=== PATIENT | male | born 1955 | race Caucasian/White ===

== ENCOUNTER 2018-12-02 07:55 | Day surgery (SDC) | payer OTHER, BC ==
[2018-11-27 15:04] VITALS: BMI 25.3
[2018-12-02 08:40] VITALS: TEMP 98.2
[2018-12-02] MEDS ORDERED: PROPOFOL 20 ML ONE ×2 (08:47)
[2018-12-02 11:47] VITALS: BP 116/72; PULSE 74
== END 2018-12-02 11:45 | disposition home or self-care (01) ==
LOC: FASU-ENDO 07:55
PROVIDERS: ATTEND Internal Medicine Gastroenterology
PROC: 0DJD8ZZ Inspection of Lower Intestinal Tract, Via Natural or Artificial Opening Endoscopic (ICD-10-PCS; principal; 2018-12-02 10:53)
DX: Z12.11 Encounter for screening for malignant neoplasm of colon (principal); K57.30 Diverticulosis of large intestine without perforation or abscess without bleeding